=== PATIENT | male | born 1990 | race Caucasian/White ===

== ENCOUNTER → 2016-07-11 | Outpatient (CLI) | payer OTHER ==
--- NOTE | 2016-07-11 12:44 | CR ---
EXAMINATION: Right ankle HISTORY: Pain COMPARISON: 07/15/2016 TECHNIQUE: 3 views FINDINGS/IMPRESSION: There is a moderate displaced medial malleolus fracture again noted with overly ing soft tissue thickening. There is possibly a small fragment also noted along the lateral aspect o f the tibiotalar joint space. The ankle mortise and talar dome appear grossly intact.
--- NOTE | 2016-07-11 13:13 | CT ---
EXAMINATION: Axial CT images obtained through the right ankle HISTORY: Pain COMPARISON: Radiographs from the same day TECHNIQUE: Axial CT images obtained through the right ankle without contrast. Coronal and sagittal r econstructions obtained. FINDINGS: There is a mildly displaced medial malleolus fracture identified. There is a comminuted n ondisplaced distal fibular fracture also noted. There is also a tiny chip fracture along the anterom edial aspect of the tibial plafond. Ankle mortise and talar dome appear grossly intact. Bone mineral ization is otherwise normal. Generalized soft tissue swelling is noted. The subtalar joint is preser margot. IMPRESSION: 1. Mildly displaced medial malleolus fracture. 2. Comminuted nondisplaced distal fibular fracture. 3. Nondisplaced small fracture of the anterior medial aspect of the tibial plafond.
== END | disposition home or self-care (01) ==
LOC: MW.CHORTHO 09:46
PROVIDERS: ATTEND Orthopaedic Surgery
DX: M25.571 Pain in right ankle and joints of right foot (principal); S82.51XA Displaced fracture of medial malleolus of right tibia, initial encounter for closed fracture; M79.9 Soft tissue disorder, unspecified; S82.454A Nondisplaced comminuted fracture of shaft of right fibula, initial encounter for closed fracture; S82.54XA Nondisplaced fracture of medial malleolus of right tibia, initial encounter for closed fracture
CPT/HCPCS: 73610-26-RT; 73610-RT; 73700-26-RT; 73700-RT

== ENCOUNTER 2016-07-17 06:23 | Day surgery (SDC) | payer OTHER ==
[~2016-07-17 06:23] MED LIST: Lactated Ringers 1,000 ML IV SCH
[2016-07-17] MEDS ORDERED: Propofol 200 MG/20 ML SDV ONE (07:11)
[2016-07-17] MEDS ORDERED: Midazolam 1 MG/ML 2 ML SDV ONE (07:11)
[2016-07-17] MEDS ORDERED: fentaNYL 250 MCG/5 ML SDV ONE (07:11)
[2016-07-17] MEDS ORDERED: Lidocaine 2% 5 ML SDV ONE ×2 (07:11→08:46)
[2016-07-17] MEDS ORDERED: Ondansetron 4 MG/2 ML SDV ONE (07:12)
[2016-07-17] MEDS ORDERED: Ketorolac 30 MG/ML SDV ONE (07:12)
--- NOTE | 2016-07-17 07:27 | PCM.PREANE ---
Preanesthetic Assessment - Anesthesia/Transfusion/Family Hx Anesthesia History: Prior Anesthesia Without Reaction Family History of Anesthesia Reaction: No Transfusion History: No Prior Transfusion(s) Intubation History: Unknown Additional History: Injured [id number]....at rest since. Risk of DVT. - Review of Systems General: No Symptoms Pulmonary: No Symptoms Cardiovascular: No Symptoms Gastrointestinal: No symptoms Neurological: Other (Pain in leg with cast) Other: Reports: None - Physical Assessment NPO Status Date: 07/16/16 NPO Status Time: 22:00 O2 Sat by Pulse Oximetry: 96 Respiratory Rate: 16 Vital Signs: Last Vital Signs Temp 98.1 F 07/17/16 07:01 Pulse 68 07/17/16 07:01 Resp 16 07/17/16 07:01 BP 124/68 07/17/16 07:01 Pulse Ox 96 07/17/16 07:01 Height: 5 ft 8 in Weight: 160 lb Mental Status: Alert & Oriented x3 Airway Class: Mallampati = 3 Dentition: Reports: Normal Dentition Thyro-Mental Finger Breadths: 3 Mouth Opening Finger Breadths: 3 (voluntary limitation) ROM/Head Extension: Full Lungs: Clear to auscultation, Normal respiratory effort Cardiovascular: Regular Rate, Regular Rhythm, No Murmurs - Allergies Allergies/Adverse Reactions: Allergies Allergy/AdvReac Type Severity Reaction Status Date / Time No Known Allergies Allergy Verified 07/15/16 12:12 - Blood Blood Available: No Product(s) Available: None - Acknowledgements Anesthesia Type Planned: General Anesthesia (LMA) Pt an Appropriate Candidate for the Planned Anesthesia: Yes Alternatives and Risks of Anesthesia Discussed w Pt/Guardian: Yes Pt/Guardian Understands and Agrees with Anesthesia Plan: Yes PreAnesthesia Questionnaire HEENT History: Reports: None Neurological History: Reports: Concussion - Past Surgical History Head Surgeries/Procedures: Reports: None HEENT Surgical History: Reports: Naso-sinus surgery - SUBSTANCE USE Smoking Status *Q: Former Smoker Tobacco Use Within Last Twelve Months: No Recreational Drug Use History: No - HOME MEDS Home Medications: Home Meds Hydrocodone/Acetaminophen [Hydrocodon-Acetaminoph 7.5-325] 1 - 2 tab PO ASDIRECTED PRN 07/15/16 [History] - CURRENT (IN HOUSE) MEDS Current Meds: Current Medications Hydrocodone Bitart/Acetaminophen ([place] 325-7.5 Mg) 1 - 2 tab PO Q4H PRN PRN Reason: Pain Lactated Ringer's (Ringers, Lactated) 1,000 mls @ 100 mls/hr IV ASDIRECTED TAYLOR Cefazolin Sodium/Dextrose 1 gm (/ Premix) 50 mls @ 100 mls/hr IV ONCALL TAYLOR Discontinued Medications Fentanyl (Sublimaze) Confirm Administered Dose 250 mcg .ROUTE .STK-MED ONE Stop: 07/17/16 07:12 Cefazolin Sodium/Dextrose (Ancef) Confirm Administered Dose 50 mls @ as directed .ROUTE .STK-MED ONE Stop: 07/17/16 07:14 Ketorolac Tromethamine (Toradol) Confirm Administered Dose 30 mg .ROUTE .STK- MED ONE Stop: 07/17/16 07:13 Lidocaine (Xylocaine-Mpf 2%) Confirm Administered Dose 10 ml .ROUTE .STK-MED ONE Stop: 07/17/16 07:12 Midazolam HCl (Versed 1 Mg/Ml) Confirm Administered Dose 2 mg .ROUTE .STK-MED ONE Stop: 07/17/16 07:12 Ondansetron HCl (Zofran) Confirm Administered Dose 4 mg .ROUTE .STK-MED ONE Stop: 07/17/16 07:13 Propofol (Diprivan 20 Ml) Confirm Administered Dose 400 mg .ROUTE .STK-MED ONE Stop: 07/17/16 07:12
[2016-07-17] MEDS ORDERED: HYDROmorphone 2 MG/ML Syringe IVPUSH ONE (07:40)
[2016-07-17] MEDS ORDERED: Bupivacaine 0.25% 10 ML SDV ONE (07:52)
[2016-07-17] MEDS ORDERED: Bupivacaine 0.25%/EPINEPHrine 1:200,000 10 ML SDV ONE (07:52)
[2016-07-17] MEDS ORDERED: ceFAZolin 1 GM in Premix Bag 1 BAG IV SCH (08:00)
[2016-07-17] MEDS ORDERED: Acetaminophen/HYDROcodone 325-7.5 MG Tab PO PRN (09:00)
--- NOTE | 2016-07-17 09:01 | PCM.OPNOTE ---
- General Post-Op/Procedure Note Date of Surgery/Procedure: 07/17/16 Operative Procedure(s): ORIF R medial malleolus Post-Op Diagnosis: R bimalleolar ankle fracture Anesthesia Technique: General LMA Primary Surgeon: Rosa David Customer Relations Advisor: Maxime Llamas in mLs: 5 Condition: Good Free Text/Narrative:: tt=18 min #[id number]
[2016-07-17] MEDS ORDERED: Acetaminophen/HYDROcodone 325-10 MG Tab PO PRN (09:02)
[2016-07-17] MEDS: fentaNYL 100 MCG/2 ML SDV IVPUSH PRN ×3 (09:15→09:28)
--- NOTE | 2016-07-17 09:42 | PCM.POSTAN ---
POST ANESTHESIA ASSESSMENT - MENTAL STATUS Mental Status: alert - RESPIRATORY Respiratory Status: respiratory rate WNL, airway patent, O2 saturation stable - CARDIOVASCULAR CV Status: pulse rate WNL, blood pressure stable - GASTROINTESTINAL GI Status: no symptoms - PAIN Pain Score: 5 - POST OP HYDRATION Hydration Status: adequate & stable - OBSERVATIONS Free Text/Narrative:: no anesthesia problems
--- NOTE | 2016-07-17 10:32 | CR ---
EXAMINATION: Ankle HISTORY: ORIF COMPARISON: 07/11/2016 TECHNIQUE: 4 fluoroscopic images provided FINDINGS/IMPRESSION: Operative control films demonstrate 2 screws fixating the medial malleolus. The previously demonstrated distal fibular fracture is not well characterized.
[2016-07-17 12:54] VITALS: BP 119/65
--- NOTE | 2016-07-17 13:27 | OR ---
SURGEON: Rosa David MD DATE OF PROCEDURE: 07/17/2016 PREOPERATIVE DIAGNOSIS: Right bimalleolar ankle fracture. POSTOPERATIVE DIAGNOSIS: Right bimalleolar ankle fracture. PROCEDURE: Open reduction internal fixation, right medial malleolus. TOE FORMER STITCHDOWNS: Maxime Llamas PA-C ANESTHESIA: General. ESTIMATED BLOOD LOSS: 5 mL. TOURNIQUET TIME: 18 minutes. COMPLICATIONS: None. DVT PROPHYLAXIS: None indicated. IMPLANTS USED: Two [place] 4.0 cannulated partially threaded screws. BRIEF HISTORY: Khoa is a 25-year-old male, who sustained a work-related injury to his right ankle on 07/05/2016. X-rays and a CT scan showed a displaced fracture of the medial malleolus with a nondisplaced fracture of the lateral malleolus. He was evaluated in clinic. I recommended surgical treatment. The risks and goals of procedure were discussed with the patient, were documented preoperatively. He agreed to proceed. DESCRIPTION OF PROCEDURE: The patient was properly identified and brought to the operating room. He was transferred from the OR cart and placed on the operating table in supine position. General anesthesia was administered. After adequate anesthesia was obtained, a well-padded tourniquet was applied to the right lower extremity. His splint was removed. Skin integrity was intact. He had minimal swelling. The right lower extremity was then prepped in standard fashion using ChloraPrep solution. It was then sterilely draped. A time-out was performed to ensure correct site and procedure. Preoperative antibiotics were given. The surgical site had been marked preoperatively. An Esmarch was used to exsanguinate the right lower extremity, and the tourniquet was inflated to 250 mmHg. An incision was made over the medial malleolus. The fracture site was able to be palpated, and I centered the incision on this. The subcutaneous tissues were dissected. I did not encounter the saphenous nerve or vein. The fracture was readily identified. Fracture hematoma was evacuated with saline. I was able to visualize the medial dome of the talus, and no articular injury was noted. The medial malleolus was then reduced. Two K-wires were placed for provisional fixation. The position of the K-wires was checked with C-arm imaging. It was felt that the K-wire placement was acceptable in both the AP and lateral plane. The K-wires were then overdrilled with the cannulated drill and two 4.0 mm partially threaded cannulated screws with washers were placed. I was able to directly visualize the fracture site, and good compression at the fracture site was noted with final tightening of the screws. Final C-arm images confirmed acceptable reduction of the fracture with good placement of the hardware. There did not appear to be any intra-articular penetration. The wound was then copiously irrigated with saline solution. The tourniquet was deflated. No excess bleeding was noted. The deep tissues were oversewn with 0 Vicryl. The subcutaneous tissues were closed with 2-0 Vicryl, and the skin was closed with jacqueline. 2% lidocaine was injected around the incision site. Xeroform gauze was placed over the wound, and a bulky dressing was applied. He was placed in a well-padded posterior splint with medial and lateral stabilizing slabs. He was awakened from his anesthetic and transferred back to the operating room cart. He was brought to recovery room in stable condition. All needle and sponge counts were correct. [place] / [place] /[id number]
== END 2016-07-17 11:25 | disposition home or self-care (01) ==
LOC: MW.SDS 06:23
PROVIDERS: ATTEND Orthopaedic Surgery
PROC: 0QSG04Z Reposition Right Tibia with Internal Fixation Device, Open Approach (ICD-10-PCS; principal; 2016-07-17)
DX: S82.51XA Displaced fracture of medial malleolus of right tibia, initial encounter for closed fracture (principal); S82.64XA Nondisplaced fracture of lateral malleolus of right fibula, initial encounter for closed fracture; Z87.891 Personal history of nicotine dependence; Z98.890 Other specified postprocedural states
CPT/HCPCS: 27766; 76000; A9270; C1713; C1769; J0690; J1885; J2250; J2405; J3010; J7120; 01480; J2704

== ENCOUNTER → 2016-07-30 | Outpatient (CLI) | payer OTHER ==
--- NOTE | 2016-07-30 14:44 | CR ---
EXAMINATION: Right ankle HISTORY: Fracture COMPARISON: CT dated 07/11/2016 TECHNIQUE: 2 views FINDINGS/IMPRESSION: 2 screws fixate a nondisplaced medial malleolus fracture. The previously demons trated distal fibular fracture is not well characterized.
== END ==
LOC: MW.CHORTHO 07:36
PROVIDERS: ATTEND Physician Assistant
DX: S82.841A Displaced bimalleolar fracture of right lower leg, initial encounter for closed fracture (principal); Z96.7 Presence of other bone and tendon implants; S82.54XA Nondisplaced fracture of medial malleolus of right tibia, initial encounter for closed fracture
CPT/HCPCS: 73600-26-RT; 73600-RT

== ENCOUNTER 2017-04-15 12:20 | Emergency (ER) | payer OTHER ==
[2017-04-15] MEDS ORDERED: Ondansetron 4 MG/2 ML SDV ONE ×2 (12:29→12:34)
[2017-04-15] MEDS ORDERED: HYDROmorphone 1 MG/ML Syringe ONE ×3 (12:29→14:58)
--- NOTE | 2017-04-15 12:31 | EDM.PDOC ---
ED HPI GENERAL MEDICAL PROBLEM - General Chief Complaint: Lower Extremity Injury/Pain Stated Complaint: LEFT LEG POSSIBLY BROKEN Time Seen by Provider: 04/15/17 12:33 Source of Information: Reports: Patient History Limitations: Reports: No Limitations - History of Present Illness INITIAL COMMENTS - FREE TEXT/NARRATIVE: HISTORY AND PHYSICAL: History of present illness: Patient is a 26-year-old male who presents to the emergency room with complaints of left lower extremity pain. He was at a work site when a large rock hit his left tib-fib/calf area. Patient does have soft tissue swelling to the left calf and increased pain with palpation and weightbearing. Skin is intact, warm, dry. He denies falling or hitting his head. Denies any loss of consciousness. Denies any other extremity involvement or other complaints. Tdap is up to date Strong pedal pulse to affected extremity. Review of systems: As per history of present illness and below otherwise all systems reviewed and negative. Past medical history: As per history of present illness and as reviewed below otherwise noncontributory. Surgical history: As per history of present illness and as reviewed below otherwise noncontributory. Social history: No reported history of drug or alcohol abuse. Family history: As per history of present illness and as reviewed below otherwise noncontributory. Physical exam: General: Well-developed and well-nourished 26-year-old male. Alert and oriented. Nontoxic appearing. HEENT: Atraumatic, normocephalic, pupils reactive, negative for conjunctival pallor or scleral icterus, mucous membranes moist, throat clear, neck supple, nontender, trachea midline. Lungs: Clear to auscultation, breath sounds equal bilaterally, chest nontender. Heart: S1S2, regular, negative for clicks, rubs, or JVD. Abdomen: Soft, nondistended, nontender. Negative for masses or hepatosplenomegaly. Negative for costovertebral tenderness. Pelvis: Stable nontender. Genitourinary: Deferred. Rectal: Deferred. Extremities: Soft tissue swelling noted to the left medial mid calf. Achilles tendon is intact. Strong pedal pulses bilaterally. No foot, ankle, knee, femur, hip involvement. Left calf/tib-fib is tender with palpation. Neurovascular unremarkable. Skin: Intact, warm, dry Neuro: Awake, alert, oriented. Cranial nerves II through XII unremarkable. Cerebellum unremarkable. Motor and sensory unremarkable throughout. Exam nonfocal. Upon arrival the patient did need assistance from his vehicle by nursing staff as he states he is unable to bear weight on that leg and is in "intense" pain. A cardboard splint is being used to immobilize the extremity as there is some soft tissue swelling to the left calf, questionable hematoma versus fracture. He does have strong pedal pulse and skin is intact. Lightheaded and Zofran were given by mouth and IM due to the difficulty of starting an IV. Anesthesiologist came to to IV start. Patient is aware of the fracture and that we do not have Orthopedist available at our facility today. He 'll be transferred to [place] via ground ambulance. The significant other at the bedside states she is not comfortable taking him private vehicle, which I agree with due to the pain and splinting. 1406 - Dr. Palomo was consulted on this case [facility] in [place]. He is agreeable to accept this case. Dr. Madden was also informed of this patient, as he will be going to the emergency room upon arrival. [facility] has been informed of transfer. The appropriate paperwork has been filled out. 1420- A long 1/2 cast posterior splint was applied. Patient has been kept comfortable with IV medication. Vital signs are stable. Pedal pulses remain intact and strong. +[facility] Diagnostics: X-ray Therapeutics: IV fluid, Zofran, Dilaudid Impression: Left tib-fib fracture Plan: Transferred to [facility] and my not via ground ambulance per Dr. Palomo Definitive disposition and diagnosis as appropriate pending reevaluation and review of above. Onset: Today Onset Date: 04/15/17 Duration: Minutes: Location: Reports: Lower Extremity, Left Improves with: Reports: Rest Worsens with: Reports: Movement Context: Reports: Trauma Associated Symptoms: Reports: No Other Symptoms Left Lower Leg Pain Score (Numeric/FACES): 10 - Related Data Allergies Allergy/AdvReac Type Severity Reaction Status Date / Time No Known Allergies Allergy Verified 04/15/17 12:22 Home Meds: Home Meds . [No Known Home Meds] 04/15/17 [History] Past Medical History - Past Health History Medical/Surgical History: Denies Medical/Surgical History HEENT History: Reports: None Neurological History: Reports: Concussion - Past Surgical History Head Surgeries/Procedures: Reports: None HEENT Surgical History: Reports: Naso-Sinus Surgery Social & Family History - Tobacco Use Smoking Status *Q: Never Smoker Second Hand Smoke Exposure: No - Caffeine Use Caffeine Use: Reports: Energy Drinks - Recreational Drug Use Recreational Drug Use: No Review of Systems - Review of Systems Review Of Systems: ROS reveals no pertinent complaints other than HPI. ED EXAM, GENERAL - Physical Exam Exam: See Below (See dictation) Course - Vital Signs Last Recorded V/S: Last Vital Signs Temp 97.0 F 04/15/17 12:28 Pulse 70 04/15/17 13:58 Resp 20 04/15/17 13:58 BP 137/66 04/15/17 13:58 Pulse Ox 100 04/15/17 13:58 - Orders/Labs/Meds Orders: Active Orders 24 hr Category Date Time Status Tibia Fibula Lt [CR] Stat Exams 04/15/17 12:32 Ordered Meds: Medications Discontinued Medications Generic Name Dose Route Start Last Admin Trade Name Freq PRN Reason Stop Dose Admin Hydromorphone HCl Confirm 04/15/17 12:29 04/15/17 12:42 Dilaudid Administered 04/15/17 12:30 Not Given Dose 1 mg .ROUTE .STK-MED ONE Hydromorphone HCl Confirm 04/15/17 12:30 04/15/17 12:42 Dilaudid Administered 04/15/17 12:31 Not Given Dose 1 mg .ROUTE .STK-MED ONE Hydromorphone HCl 1 mg 04/15/17 12:32 04/15/17 12:42 Dilaudid IM 04/15/17 12:33 1 mg ONETIME ONE Administration Hydromorphone HCl 0.5 mg 04/15/17 13:47 Dilaudid IM 04/15/17 13:48 ONETIME ONE Sodium Chloride 150 mls @ 999 mls/hr 04/15/17 12:32 Normal Saline IV 04/15/17 12:41 STAT ONE Ondansetron HCl Confirm 04/15/17 12:29 04/15/17 12:42 Zofran Administered 04/15/17 12:30 Not Given Dose 4 mg .ROUTE .STK-MED ONE Ondansetron HCl 4 mg 04/15/17 12:32 04/15/17 12:42 Zofran IVPUSH 04/15/17 12:33 Not Given ONETIME ONE Ondansetron HCl Confirm 04/15/17 12:34 04/15/17 12:42 Zofran Administered 04/15/17 12:35 Not Given Dose 4 mg .ROUTE .STK-MED ONE Ondansetron HCl Confirm 04/15/17 12:39 04/15/17 12:44 Zofran Odt Administered 04/15/17 12:40 Not Given Dose 4 mg .ROUTE .STK-MED ONE Ondansetron HCl 4 mg 04/15/17 13:12 04/15/17 13:15 Zofran Odt PO 04/15/17 13:13 4 mg ONETIME ONE Administration Departure - Departure Time of Disposition: 14:31 Disposition: DC/Tfer to Other 70 Clinical Impression: Tibia/fibula fracture, shaft Qualifiers: Encounter type: initial encounter Fracture type: closed Laterality: left Qualified Code(s): S82.202A - Unspecified fracture of shaft of left tibia, initial encounter for closed fracture - Discharge Information Referrals: PCP,None [Primary Care Provider] - Forms: ED Department Discharge - My Orders Last 24 Hours: My Active Orders 04/15/17 12:32 Tibia Fibula Lt [CR] Stat - Assessment/Plan Last 24 Hours: My Active Orders 04/15/17 12:32 Tibia Fibula Lt [CR] Stat
[2017-04-15] MEDS ORDERED: Ondansetron 4 MG/2 ML SDV IVPUSH ONE (12:32)
[2017-04-15] MEDS ORDERED: HYDROmorphone 1 MG/ML Syringe IM ONE ×3 (12:32→14:56)
[2017-04-15] MEDS ORDERED: Ondansetron 4 MG Tab.DIS ONE (12:39)
[2017-04-15] MEDS ORDERED: Ondansetron 4 MG Tab.DIS PO ONE (13:12)
[2017-04-15 14:02] VITALS: BP 137/66
--- NOTE | 2017-04-15 14:59 | CR ---
EXAMINATION: Left tibia and fibula HISTORY: Injury COMPARISON: None TECHNIQUE: 2 views FINDINGS/IMPRESSION: There is a comminuted displaced mid tibial diaphysis fracture and adjacent displ aced oblique proximal fibular fracture identified. The fibular fracture is not well characterized on the AP view due to positioning. Otherwise the visualized osseous structures appear intact.
== END 2017-04-15 16:10 | disposition other institution (70) ==
LOC: MW.ED 12:20
DX: S82.252A Displaced comminuted fracture of shaft of left tibia, initial encounter for closed fracture (principal); S82.432A Displaced oblique fracture of shaft of left fibula, initial encounter for closed fracture; W22.8XXA Striking against or struck by other objects, initial encounter; Y99.0 Civilian activity done for income or pay
CPT/HCPCS: 29505; 73590; 96372; 99285; A9270; J1170; 99284

== ENCOUNTER 2017-07-30 06:57 | Day surgery (SDC) | payer OTHER ==
[2017-07-30] MEDS ORDERED: Lidocaine 2% 5 ML SDV ONE (07:22)
[2017-07-30] MEDS ORDERED: Propofol 200 MG/20 ML SDV ONE (07:22)
[2017-07-30] MEDS ORDERED: fentaNYL 100 MCG/2 ML SDV ONE (07:22)
[2017-07-30] MEDS ORDERED: Midazolam 1 MG/ML 2 ML SDV ONE (07:23)
[2017-07-30] MEDS ORDERED: Bupivacaine 0.5% 10 ML SDV ONE (07:27)
--- NOTE | 2017-07-30 07:33 | PCM.PREANE ---
Preanesthetic Assessment - Anesthesia/Transfusion/Family Hx Anesthesia History: Prior Anesthesia Without Reaction Family History of Anesthesia Reaction: No Transfusion History: No Prior Transfusion(s) Intubation History: Unknown - Review of Systems General: No Symptoms Pulmonary: No Symptoms Cardiovascular: No Symptoms Gastrointestinal: No Symptoms Neurological: No Symptoms Other: Reports: None - Physical Assessment NPO Status Date: 07/29/17 Height: 1.73 m Weight: 74.843 kg ASA Class: 1 Mental Status: Alert & Oriented x3 Airway Class: Mallampati = 1 Dentition: Reports: Normal Dentition ROM/Head Extension: Full Lungs: Clear to Auscultation, Normal Respiratory Effort Cardiovascular: Regular Rate, Regular Rhythm - Allergies Allergies/Adverse Reactions: Allergies Allergy/AdvReac Type Severity Reaction Status Date / Time No Known Allergies Allergy Verified 07/25/17 11:53 - Anesthesia Plan Pre-Op Medication Ordered: None - Acknowledgements Anesthesia Type Planned: General Anesthesia Pt an Appropriate Candidate for the Planned Anesthesia: Yes Alternatives and Risks of Anesthesia Discussed w Pt/Guardian: Yes Pt/Guardian Understands and Agrees with Anesthesia Plan: Yes PreAnesthesia Questionnaire - Past Health History Medical/Surgical History: Denies Medical/Surgical History HEENT History: Reports: None Musculoskeletal History: Reports: Fracture Neurological History: Reports: Concussion Psychiatric History: Reports: Anxiety Endocrine/Metabolic History: Reports: None - Past Surgical History Head Surgeries/Procedures: Reports: None HEENT Surgical History: Reports: Naso-Sinus Surgery Musculoskeletal Surgical History: Reports: ORIF Other Musculoskeletal Surgeries/Procedures:: ORIF left leg fx and rt ankle fx - SUBSTANCE USE Smoking Status *Q: Never Smoker Tobacco Use Within Last Twelve Months: No Second Hand Smoke Exposure: No Recreational Drug Use History: No - HOME MEDS Home Medications: Home Meds traMADol HCl [Tramadol HCl] 50 mg PO ASDIRECTED PRN 07/25/17 [History] - CURRENT (IN HOUSE) MEDS Current Meds: Current Medications Hydrocodone Bitart/Acetaminophen ([place] 325-5 Mg) 1 - 2 tab PO Q4H PRN PRN Reason: Pain Cefazolin Sodium/Dextrose 1 gm (/ Premix) 50 mls @ 100 mls/hr IV ONCALL TAYLOR Lactated Ringer's (Ringers, Lactated) 1,000 mls @ 100 mls/hr IV ASDIRECTED TAYLOR Discontinued Medications Bupivacaine HCl (Sensorcaine-Mpf 0.5%) Confirm Administered Dose 20 ml .ROUTE .STK-MED ONE Stop: 07/30/17 07:28 Fentanyl (Sublimaze) Confirm Administered Dose 200 mcg .ROUTE .STK-MED ONE Stop: 07/30/17 07:23 Lidocaine (Xylocaine-Mpf 2%) Confirm Administered Dose 10 ml .ROUTE .STK-MED ONE Stop: 07/30/17 07:23 Midazolam HCl (Versed 1 Mg/Ml) Confirm Administered Dose 2 mg .ROUTE .STK-MED ONE Stop: 07/30/17 07:24 Propofol (Diprivan 20 Ml) Confirm Administered Dose 400 mg .ROUTE .STK-MED ONE Stop: 07/30/17 07:23
[2017-07-30] MEDS ORDERED: ceFAZolin 1 GM in Premix Bag 1 BAG IV SCH (08:00)
[2017-07-30] MEDS ORDERED: Acetaminophen/HYDROcodone 325-5 MG Tab PO PRN (08:00)
--- NOTE | 2017-07-30 08:42 | PCM.OPNOTE ---
- General Post-Op/Procedure Note Date of Surgery/Procedure: 07/30/17 Operative Procedure(s): HWR R ankle Post-Op Diagnosis: Painful retained HW R ankle Anesthesia Technique: General LMA Primary Surgeon: Rosa David Progressive Assembler And Fitter: Doc Salvador in mLs: 5 Condition: Good Free Text/Narrative:: tt=12 min #[id number]
[2017-07-30] MEDS: fentaNYL 100 MCG/2 ML SDV IVPUSH PRN ×4 (08:51→09:10)
--- NOTE | 2017-07-30 09:08 | PCM.POSTAN ---
POST ANESTHESIA ASSESSMENT - MENTAL STATUS Mental Status: Alert, Oriented - RESPIRATORY Respiratory Status: Respiratory Rate WNL, Airway Patent, O2 Saturation Stable - CARDIOVASCULAR CV Status: Pulse Rate WNL, Blood Pressure Stable - GASTROINTESTINAL GI Status: No Symptoms - POST OP HYDRATION Hydration Status: Adequate & Stable
--- NOTE | 2017-07-30 09:27 | OR ---
SURGEON: Rosa David MD DATE OF PROCEDURE: 07/30/2017 PREOPERATIVE DIAGNOSIS: Painful retained hardware, right ankle. POSTOPERATIVE DIAGNOSIS: Painful retained hardware, right ankle. PROCEDURE PERFORMED: Hardware removal, right ankle (deep implant). SOIL CONSERVATION AIDE: Doc Salvador MD, PGY2. ANESTHESIA: General. ESTIMATED BLOOD LOSS: 5 mL. TOURNIQUET TIME: 12 minutes. COMPLICATIONS: None. DVT PROPHYLAXIS: Not indicated. IMPLANTS USED: None. BRIEF HISTORY: Khoa is a 26-year-old male, who previously underwent open reduction and internal fixation of the medial malleolus following a bimalleolar ankle fracture. He went on to heal the fracture well, however; continued to be bothered by persistent pain at the hardware site. Due to his lack of response to conservative treatment, I did recommend surgical intervention. The risks and goals of procedure were discussed with the patient and were documented preoperatively. He agreed to proceed. DESCRIPTION OF PROCEDURE: The patient was properly identified and brought to the operating room. He was transferred from the OR cart and placed on the operating room table in supine position. General anesthesia was administered. After adequate anesthesia was obtained, a well-padded tourniquet was applied to the right lower extremity. The right lower extremity was then prepped in standard fashion using ChloraPrep solution. It was then sterilely draped. A time-out was performed to ensure correct site and procedure. Preoperative antibiotics were given. The surgical site had been marked preoperatively. The tourniquet was inflated to 250 mmHg. An incision was made over the distal site of the previous incision. Subcutaneous tissues were incised. The screws were identified and cleared of soft tissue. A K-wire was placed into the cannulated screw. The cannulated screw and washer were removed without difficulty. This process was repeated for the 2nd screw and washer. At the completion, an x-ray was obtained, which showed removal of the hardware. The wound was then copiously irrigated with saline solution. The deep tissues were closed with 2-0 Monocryl. The subcutaneous tissues were also closed with 2-0 Monocryl and the skin was closed with jacqueline. Xeroform gauze was placed over the wound and a bulky dressing was applied. The tourniquet was deflated prior to final wound closure and no excess bleeding was noted. The patient was awakened from the anesthetic and transferred back to the operating room cart. He was brought to recovery room in stable condition. All needle and sponge counts were correct. [place] / [place] /[id number]
[2017-07-30] MEDS: HYDROmorphone 2 MG/ML SDV IVPUSH ONE ×3 (09:54→10:20)
--- NOTE | 2017-07-30 10:28 | PCM48HPAN ---
Post Anesthesia Note - EVALUATION WITHIN 48HRS OF ANESTHETIC Vital Signs in Normal Range: Yes Patient Participated in Evaluation: Yes Respiratory Function Stable: Yes Airway Patent: Yes Cardiovascular Function Stable: Yes Hydration Status Stable: Yes Pain Control Satisfactory: Yes Nausea and Vomiting Control Satisfactory: Yes Mental Status Recovered: Yes Resp Rate: 12
[2017-07-30 11:56] VITALS: BP 112/61
--- NOTE | 2017-07-30 14:36 | CR ---
EXAMINATION: Right ankle HISTORY: Hardware removal COMPARISON: 02/26/2017 TECHNIQUE: Single view FINDINGS/IMPRESSION: Single postoperative control films demonstrate interval removal of the previousl y demonstrated screws fixating the medial malleolus.
== END 2017-07-30 10:43 | disposition home or self-care (01) ==
LOC: MW.SDS 06:57
PROVIDERS: ATTEND Orthopaedic Surgery
DX: T84.84XA Pain due to internal orthopedic prosthetic devices, implants and grafts, initial encounter (principal); M76.821 Posterior tibial tendinitis, right leg; Z87.891 Personal history of nicotine dependence
CPT/HCPCS: 20680; 76000; A9270; J1170; J2250; J3010; J7120; 01480; 88300; J2704